=== PATIENT | female | born 1995 | race Caucasian/White ===

== ENCOUNTER → 2017-12-23 | Outpatient (CLI) | payer OTHER ==
[~2017-12-23] MED LIST: METO100T20 PO; NADO80TA PO; NORG1TAB76 PO; TOPI-119 PO
[2017-12-23 13:56] LABS: PLATELET COUNT, AUTOMATED 235 K/uL (150-450)
== END ==
LOC: LAB 13:22
PROVIDERS: ATTEND Nurse Practitioner Pediatrics
DX: R19.7 Diarrhea, unspecified (principal)
CPT/HCPCS: 36415; 82040; 82247; 82310; 82374; 82435; 82565; 82728; 82784; 82947; 83630; 84075; 84132; 84155; 84295; 84439; 84443; 84450; 84460; 84520; 85007; 85027; 85651; 87045; 87177; 87269; 87324; 87449

== ENCOUNTER → 2018-01-04 | Outpatient (CLI) | payer OTHER | LOC: LAB 11:28 | PROVIDERS: ATTEND Internal Medicine Gastroenterology | DX: R19.7 Diarrhea, unspecified (principal) | CPT/HCPCS: 36415; 83516 ==